=== PATIENT | male | born 1985 | race American Indian/Alaskan Native ===

== ENCOUNTER 2017-09-05 13:31 | Emergency (ER) | payer OTHER ==
[2017-09-05 15:22] VITALS: BMI 30.1
--- NOTE | 2017-09-05 15:38 | ED PDOC ---
Arrival/HPI - General Chief Complaint: Lower Extremity Problem/Injury Time Seen by Provider: 09/05/17 15:38 Historian: Patient - History of Present Illness Narrative History of Present Illness (Text): 09/05/17 15:38 This 32 yo male presents to this Emergency department complaining of right ankle pain and swelling x 1 day. Patient stated during a basketball game, he jumped, and landed wrong, twisting his ankle. Patient denies knee pain, hip pain, calf pain, leg swelling, back pain, dizziness, or dizziness. Time/Duration: Other (1 day) Quality: Aching Context: Other (basketball court) Past Medical History - Provider Review Nursing Documentation Reviewed: Yes - Infectious Disease Hx of Infectious Diseases: None - Psychiatric Hx Substance Use: No - Anesthesia Hx Anesthesia: No Family/Social History - Physician Review Nursing Documentation Reviewed: Yes Family/Social History: Other (noncontributory) Smoking Status: Never Smoked Hx Alcohol Use: Yes Frequency of alcohol use: Socially Hx Substance Use: No Allergies/Home Meds Allergies/Adverse Reactions: Allergies nut - unspecified Allergy (Verified 09/05/17 15:22) RASH Review of Systems - Review of Systems Constitutional: Normal. absent: Fatigue, Weight Change, Fevers Eyes: Normal ENT: Normal Respiratory: Normal Cardiovascular: Normal Gastrointestinal: Normal Genitourinary Male: Normal Musculoskeletal: Other ((+) right ankle pain and swelling) Skin: Normal Neurological: Normal Endocrine: Normal Hemo/Lymphatic: Normal Psychiatric: Normal Physical Exam Vital Signs Temp Pulse Resp BP Pulse Ox 09/05/17 17:25 78 18 134/78 98 09/05/17 15:54 98.4 F 82 18 145/92 H 97 Temperature: Afebrile Blood Pressure: Normal Pulse: Regular Respiratory Rate: Normal Appearance: Positive for: Well-Appearing, Non-Toxic, Comfortable Pain Distress: None Mental Status: Positive for: Alert and Oriented X 3 - Systems Exam Head: Present: Atraumatic, Normocephalic Pupils: Present: PERRL Extroacular Muscles: Present: EOMI Conjunctiva: Present: Normal Mouth: Present: Moist Mucous Membranes Neck: Present: Normal Range of Motion Back: Present: Normal Inspection. No: CVA Tenderness Upper Extremity: Present: Normal Inspection, Normal ROM. No: Cyanosis, Edema Lower Extremity: Present: NORMAL PULSES, Tenderness (Mild tenderness medial malleoulus area. Mild swollen noted around ankle. ), Swelling, Neurovascularly Intact, Capillary Refill < 2 s, Other (Arellano test was negative. No posterior ankle tenderness. No calf tenderness. ). No: Edema, CALF TENDERNESS, Normal ROM, Erythema, Deformity, Temperature Abnormalties Neurological: Present: GCS=15, CN II-XII Intact, Speech Normal, Motor Func Grossly Intact, Normal Sensory Function, Normal Cerebellar Funct, Gait Normal Skin: Present: Warm, Dry, Normal Color. No: Rashes Psychiatric: Present: Alert, Oriented x 3, Normal Insight, Normal Concentration Medical Decision Making ED Course and Treatment: 09/05/17 17:00 Re-evaluation. Patient feels better. Discussed results and plan with patient who expresses understanding. All questions answered and there is agreement with the plan to discharge home with instructions. Patient stable for discharge. Return if symptoms persist or worsen. Ankle x-rays was negative for fracture as per radiologist. Patient was recommended crutches, sivakumar bandage, and air cast. RICE. Remove sivakumar bandage at bedtime. No sports or gym till clear by his doctor. No proximal fibular tenderness on palpation. Re-evaluation Time: 17:00 Reassessment Condition: Re-examined, Improved - RAD Interpretation Narrative RAD Interpretations (Text): 09/05/17 17:06 PROCEDURE: Right Ankle Radiographs. HISTORY: Pain COMPARISON: None FINDINGS: BONES: No evidence of acute fracture or dislocation. Small well corticated ossicles seen distal to the medial malleolus may represent soft tissue calcification accessory bone or less likely old ablation fracture. JOINTS: Normal. No osteoarthritis. Ankle mortise maintained. Talar dome intact SOFT TISSUES: [id number] soft tissue swelling more prominent adjacent to the lateral malleolus. OTHER FINDINGS: None. IMPRESSION: No radiographic evidence of acute fracture or dislocation. In moderate soft tissue swelling. Radiology Orders: 09/05/17 15:39 ANKLE RIGHT 3 VIEWS ROUTINE [RAD] Stat - Medication Orders Current Medication Orders: Discontinued Medications Ibuprofen (Motrin Tab) 600 mg PO STAT STA Stop: 09/05/17 15:40 Last Admin: 09/05/17 15:50 Dose: 600 mg MAR Pain/Vitals Document 09/05/17 15:50 GMD (Rec: 09/05/17 15:50 GMD [id number]) Pain Reassessment Is This A Pain ReAssessment? No Sleep Is patient sleeping during reassessment? No Presence of Pain Presence of Pain Yes Disposition/Present on Arrival - Present on Arrival Any Indicators Present on Arrival: No History of DVT/PE: No History of Uncontrolled Diabetes: No Urinary Catheter: No History of Decub. Ulcer: No History Surgical Site Infection Following: None - Disposition Have Diagnosis and Disposition been Completed?: Yes Diagnosis: Ankle sprain Disposition: HOME/ ROUTINE Disposition Time: 17:07 Patient Plan: Discharge Condition: GOOD Discharge Instructions (ExitCare): Ankle Sprain (ED) Additional Instructions: Call private doctor for follow up visit in 1-2 days. Keep ankle elevated, ice, rest, crutches, sivakumar. Remove sivakumar bandage at bedtime. return to emergency if pain worsen. Take medication as instructed with food. Prescriptions: Famotidine [Pepcid] 40 mg PO DAILY #10 tablet Ibuprofen [Motrin] 600 mg PO Q8 PRN #20 tab PRN Reason: Pain, Severe (8-10) Referrals: Jose Kline MD [Primary Care Provider] - Follow up with primary Forms: [facility] (Faroese), WORK NOTE
[2017-09-05 15:55] VITALS: RESP 18; TEMP 98.4
--- NOTE | 2017-09-05 17:02 | RAD ---
PROCEDURE: Right Ankle Radiographs. HISTORY: Pain COMPARISON: None FINDINGS: BONES: No evidence of acute fracture or dislocation. Small well corticated ossicles seen distal to the medial malleolus may represent soft tissue calcification accessory bone or less likely old ablation fracture. JOINTS: Normal. No osteoarthritis. Ankle mortise maintained. Talar dome intact SOFT TISSUES: [id number] soft tissue swelling more prominent adjacent to the lateral malleolus. OTHER FINDINGS: None. IMPRESSION: No radiographic evidence of acute fracture or dislocation. In moderate soft tissue swelling.
[2017-09-05 17:26] VITALS: BP 134/78; PULSE 78; O2SAT 98
== END 2017-09-05 17:27 | disposition home or self-care (01) ==
LOC: ED 13:31
DX: S93.401A Sprain of unspecified ligament of right ankle, initial encounter (principal); X50.1XXA Overexertion from prolonged static or awkward postures, initial encounter; Y93.67 Activity, basketball; Y92.89 Other specified places as the place of occurrence of the external cause